=== PATIENT | female | born 1970 | race Caucasian/White ===

== ENCOUNTER 2016-05-04 14:07 | Emergency (ER) | payer OTHER ==
[~2016-05-04] VITALS: Ht 167.6 cm; Wt 77.6 kg
[~2016-05-04 14:07] MED LIST: ASPIR 8181 MG PO; FLA500 PO; LAC PO; MOTRIN800 MG PO; PRILOSEC20 MG PO; SIMVASTATIN20 M1 PO
[2016-05-04 16:11] LABS: microscopic required? NO
[2016-05-04 16:17] LABS: BASOPHIL % 0.6 % (0-2); PLATELET COUNT 233 x10^3mcL (130-400); RED CELL DISTRIBUTION WIDTH 14.3 % (11.5-14.5)
[2016-05-04 16:19] LABS: urine erythrocyte NEGATIVE (NEGATIVE)
[2016-05-04 16:25] LABS: CALCIUM 8.8 mg/dL (8.5-10.1); CARBON DIOXIDE 29.5 mmol/L (21-32); CHLORIDE SERUM 104 mmol/L (98-107); CREATININE SERUM 0.7 mg/dL (0.6-1.0); GFR1 > 60 mL/min; GLUCOSE SERUM 105 mg/dL (74-106); POTASSIUM SERUM 3.9 mmol/L (3.5-5.1); SODIUM SERUM 140 mmol/L (136-145)
[2016-05-04 16:31] LABS: ALBUMIN 3.8 g/dL (3.4-5.0); ALKALINE PHOSPHATASE 59 U/L (46-116); ALT/SGPT 26 U/L (14-59); AST/SGOT 15 U/L (15-37); BILIRUBIN TOTAL 0.29 mg/dL (0.20-1.00); CHOLESTEROL 199 mg/dL (<200); CHOLESTEROL/HDL RATIO 3.3; HDL CHOLESTEROL 60 mg/dL (40-60); LIPASE 161 IU/L (73-393); TOTAL PROTEIN, SERUM 7.2 g/dL (6.4-8.2); TRIGLYCERIDES 83 mg/dL (<150)
[2016-05-04 17:11] LABS: FREE T4 0.8 ng/dL (0.76-1.46); FREE THYROXINE INDEX 1.7 ug/dL (1.4-4.5); T4(THYROXINE) 5.8 ug/dL (4.7-13.3)
[2016-05-04 17:12] LABS: T3 TOTAL 0.88 ng/mL
[2016-05-04 19:43] VITALS: BP 124/86
== END 2016-05-04 19:44 | disposition home or self-care (01) ==
LOC: ED 14:07
PROVIDERS: Specialist
DX: J45.901 Unspecified asthma with (acute) exacerbation (principal); I10 Essential (primary) hypertension; D25.9 Leiomyoma of uterus, unspecified; K21.9 Gastro-esophageal reflux disease without esophagitis; E78.00 Pure hypercholesterolemia, unspecified; Z90.49 Acquired absence of other specified parts of digestive tract; Z90.89 Acquired absence of other organs
CPT/HCPCS: 83880; 84439; J0696; J1885; J2405; J3010; J7030; J7613; J7620; J7644; Q0092

== ENCOUNTER 2016-05-11 09:10 | Emergency (ER) | payer OTHER ==
[~2016-05-11] VITALS: Ht 167.6 cm; Wt 78.0 kg
[2016-05-11 13:41] VITALS: BP 114/74
== END 2016-05-11 13:41 | disposition home or self-care (01) ==
LOC: ED 09:10
DX: J45.901 Unspecified asthma with (acute) exacerbation (principal); D25.9 Leiomyoma of uterus, unspecified; E78.00 Pure hypercholesterolemia, unspecified; I10 Essential (primary) hypertension; L23.89 Allergic contact dermatitis due to other agents; T37.0X5A Adverse effect of sulfonamides, initial encounter; Y92.89 Other specified places as the place of occurrence of the external cause
CPT/HCPCS: J1170; J1885; J7512; J7613; J7644; Q0163

== ENCOUNTER 2016-07-06 21:44 | Emergency (ER) | payer OTHER ==
[2016-07-06 23:27] VITALS: BP 142/87
== END 2016-07-06 23:27 | disposition home or self-care (01) ==
LOC: ED 21:44
DX: T63.441A Toxic effect of venom of bees, accidental (unintentional), initial encounter (principal); M79.89 Other specified soft tissue disorders; L29.9 Pruritus, unspecified; I10 Essential (primary) hypertension; E78.00 Pure hypercholesterolemia, unspecified; D25.9 Leiomyoma of uterus, unspecified; R73.03 Prediabetes; Y92.89 Other specified places as the place of occurrence of the external cause
CPT/HCPCS: J0171; J1200; J2930; J3490

== ENCOUNTER 2016-08-14 09:02 | Emergency (ER) | payer OTHER ==
[2016-08-14 11:25] LABS: BASOPHIL % 0.7 % (0-2); PLATELET COUNT 218 x10^3mcL (130-400); RED CELL DISTRIBUTION WIDTH 12.9 % (11.5-14.5)
[2016-08-14 11:26] LABS: CALCIUM 9.2 mg/dL (8.5-10.1); CARBON DIOXIDE 28.8 mmol/L (21-32); CHLORIDE SERUM 104 mmol/L (98-107); CREATININE SERUM 0.6 mg/dL (0.6-1.0); GFR1 > 60 mL/min; GLUCOSE SERUM 102 mg/dL (74-106); POTASSIUM SERUM 3.6 mmol/L (3.5-5.1); SODIUM SERUM 140 mmol/L (136-145)
[2016-08-14 11:29] LABS: ALBUMIN 3.7 g/dL (3.4-5.0); ALKALINE PHOSPHATASE 66 U/L (46-116); ALT/SGPT 37 U/L (14-59); AST/SGOT 23 U/L (15-37); BILIRUBIN TOTAL 0.4 mg/dL (0.20-1.00); TOTAL PROTEIN, SERUM 6.8 g/dL (6.4-8.2)
[2016-08-14 12:27] VITALS: BP 131/68
== END 2016-08-14 12:32 | disposition home or self-care (01) ==
LOC: ED 09:02
PROVIDERS: Emergency Medicine
DX: J45.901 Unspecified asthma with (acute) exacerbation (principal); R21 Rash and other nonspecific skin eruption; I10 Essential (primary) hypertension; Z88.2 Allergy status to sulfonamides; Z88.5 Allergy status to narcotic agent
CPT/HCPCS: 36415; 83880; 85378; J7613; J7644

== ENCOUNTER 2016-09-02 12:43 | Emergency (ER) | payer OTHER ==
[~2016-09-02] VITALS: Ht 167.6 cm; Wt 82.1 kg
[2016-09-02 13:28] VITALS: BP 135/79
== END 2016-09-02 13:28 | disposition home or self-care (01) ==
LOC: ED 12:43
DX: L23.89 Allergic contact dermatitis due to other agents (principal); T63.441A Toxic effect of venom of bees, accidental (unintentional), initial encounter; E78.00 Pure hypercholesterolemia, unspecified; I10 Essential (primary) hypertension; Z88.5 Allergy status to narcotic agent; Z88.2 Allergy status to sulfonamides; Z88.8 Allergy status to other drugs, medicaments and biological substances; Y92.89 Other specified places as the place of occurrence of the external cause
CPT/HCPCS: J7512

== ENCOUNTER 2016-12-08 23:55 | Emergency (ER) | payer OTHER ==
[~2016-12-08] VITALS: Ht 167.6 cm; Wt 86.2 kg
[2016-12-09 03:08] VITALS: BP 124/82
== END 2016-12-09 03:08 | disposition home or self-care (01) ==
LOC: ED 23:55
DX: T63.441A Toxic effect of venom of bees, accidental (unintentional), initial encounter (principal); T78.40XA Allergy, unspecified, initial encounter; I10 Essential (primary) hypertension; Z88.2 Allergy status to sulfonamides; Z88.5 Allergy status to narcotic agent; Y92.89 Other specified places as the place of occurrence of the external cause
CPT/HCPCS: J3010; J7512; Q0163